=== PATIENT | female | born 1955 | race Caucasian/White ===

== ENCOUNTER 2021-01-11 14:32 | Outpatient (CLI) | payer MEDICARE, SELFPAY ==
[2021-01-11 14:46] LABS: Hematocrit 44.6 % (35.0-42.0); Hemoglobin 14.8 g/dL (11.7-13.8); Mean Corpuscular HGB Conc 33.2 g/dL (32.0-36.0); Mean Corpuscular Hemoglobin 31.3 pg (27.0-31.0); Mean Corpuscular Volume 94.3 fL (78.0-102.0); Mean Platelet Volume 9.8 fl (9.2-11.8); Platelet Count Result 206 K/mm3 (150-420); Red Blood Count 4.73 M/mm3 (4.20-5.40); Red Cell Distribution Width 13.5 % (11.6-14.4)
[2021-01-11 15:59] LABS: Alanine Aminotransferase 23 U/L (14-59); Alkaline Phosphatase 95 U/L (46-116); Anion Gap 12 mmol/L (8-16); Aspartate Amino Transferase 15 U/L (15-37); Bilirubin,Total 0.3 mg/dL (0.00-1.00); Blood Urea Nitrogen 10 mg/dL (7-18); Calcium 9.5 mg/dL (8.5-10.1); Carbon Dioxide 27 mmol/L (21-32); Chloride 103 mmol/L (98-108); Cholesterol 172 mg/dL (0-200); Estimated Glomerular Filt Rate > 60; Glucose 100 mg/dL (70-99); HDL Direct 45 mg/dL (40-60); LDL Cholesterol Calculated 98 mg/dL (<130); Osmolality Calculated 293 mOsm/kg (285-295); Potassium 4.2 mmol/L (3.5-5.1); Sodium 142 mmol/L (136-145); Total Protein 6.9 g/dL (6.4-8.2); Triglycerides 147 mg/dL (0-150)
[2021-01-11 16:02] LABS: Thyroid Stimulating Hormone Reflex 0.32 u/IU/mL (0.36-3.74)
[2021-01-11 16:03] LABS: Free T4 Free Thyroxine Reflex 1.07 ng/dL (0.76-1.46)
== END 2021-01-11 14:33 | disposition home or self-care (01) ==
PROVIDERS: PCP Family Medicine; Visit Provider Family Medicine
DX: M79.7 Fibromyalgia (principal); E78.00 Pure hypercholesterolemia, unspecified; E03.9 Hypothyroidism, unspecified; E11.9 Type 2 diabetes mellitus without complications
CPT/HCPCS: 36415; 80053; 80061; 84439; 84443; 85027

== ENCOUNTER 2022-02-08 15:46 | Outpatient (CLI) | payer MEDICARE, SELFPAY ==
[2022-02-08 15:56] LABS: Hematocrit 44.8 % (35.0-42.0); Hemoglobin 14.8 g/dL (11.7-13.8); Mean Corpuscular Hemoglobin 31.8 pg (27.0-31.0); Mean Corpuscular Volume 96.1 fL (78.0-102.0); Mean Platelet Volume 9.4 fl (9.2-11.8); Platelet Count Result 284 K/mm3 (150-420); Red Blood Count 4.66 M/mm3 (4.20-5.40); Red Cell Distribution Width 13.5 % (11.6-14.4)
[2022-02-08 16:15] LABS: Alanine Aminotransferase 43 U/L (14-59); Albumin Level 3.9 g/dL (3.4-5.0); Alkaline Phosphatase 85 U/L (46-116); Anion Gap 8 mmol/L (8-16); Aspartate Amino Transferase 20 U/L (15-37); Bilirubin,Total 0.3 mg/dL (0.00-1.00); Blood Urea Nitrogen 8 mg/dL (7-18); Calcium 9.4 mg/dL (8.5-10.1); Carbon Dioxide 29 mmol/L (21-32); Chloride 103 mmol/L (98-108); Cholesterol 164 mg/dL (0-200); Estimated Glomerular Filt Rate > 60; Glucose 143 mg/dL (70-99); HDL Direct 54 mg/dL (40-60); LDL Cholesterol Calculated 89 mg/dL (<130); Osmolality Calculated 290 mOsm/kg (285-295); Potassium 3.6 mmol/L (3.5-5.1); Sodium 140 mmol/L (136-145); Triglycerides 105 mg/dL (0-150)
[2022-02-08 16:25] LABS: Thyroid Stimulating Hormone Reflex 2.63 u/IU/mL (0.36-3.74)
== END 2022-02-08 15:47 | disposition home or self-care (01) ==
LOC: CHSLAB 15:48
PROVIDERS: PCP Family Medicine; Visit Provider Family Medicine
DX: M79.7 Fibromyalgia (principal); E78.00 Pure hypercholesterolemia, unspecified; E11.9 Type 2 diabetes mellitus without complications; E03.9 Hypothyroidism, unspecified
CPT/HCPCS: 36415; 80053; 80061; 84443; 85027

== ENCOUNTER 2022-09-01 09:10 | Outpatient (CLI) | payer MEDICARE, SELFPAY ==
--- NOTE | ~2022-09-01 | MR_ITS ---
MRI of the lumbar spine Clinical History: Back pain Technique: Axial T2-weighted images, and sagittal T1-weighted, T2-weighted, and and T2 fat-sat images were acquired. Findings: No acute fracture or subluxation identified in the lumbar spine. Vertebral bodies maintain normal height and alignment. There is diffusely heterogeneous marrow signal, but no focal, suspicious marrow signal abnormality is identified. At L1-L2, there is no disc bulge or herniation. There is minimal facet joint hypertrophy. No spinal c anal stenosis or neural foraminal narrowing. At L2-L3 and L3-L4, there is no disc bulge or herniation. No spinal canal stenosis or neural foramina l narrowing at these levels. There is facet arthropathy at these levels. At L4-L5, there is degenerative disc narrowing with minimal disc bulge and facet arthropathy. No spin al canal stenosis or neural foraminal narrowing. At L5-S1, there is no disc bulge or herniation. There is mild facet arthropathy. No spinal canal sten osis or neural foraminal narrowing. 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 Paravertebral soft tissues are otherwise unremarkable. Impression: Minimal degenerative spondylosis, as above. No spinal canal stenosis or neural foraminal narrowing. Nonspecific heterogeneous marrow signal without distinct fracture or focal, suspicious marrow signal abnormality. Reviewed, dictated and finalized at [facility]. ON HEADER Impression: Minimal degenerative spondylosis, as above. No spinal canal stenosis or neural foraminal narrowing. Nonspecific heterogeneous marrow signal without distinct fracture or focal, julián picious marrow signal abnormality.
== END 2022-09-01 09:11 | disposition home or self-care (01) ==
LOC: CHSIMG 09:12
PROVIDERS: PCP Family Medicine; Visit Provider Family Medicine
DX: M54.50 Low back pain, unspecified (principal); G89.29 Other chronic pain; M19.90 Unspecified osteoarthritis, unspecified site
CPT/HCPCS: 72148

== ENCOUNTER 2022-11-01 15:16 | Outpatient (CLI) | payer MEDICARE, SELFPAY ==
--- NOTE | ~2022-11-01 | XR_ITS ---
EXAMINATION: XR thoracic spine 3V DATE: 11/01/2022 15:45 INDICATION: Thoracic spine pain. TECHNIQUE: 3 views of thoracic spine were obtained. COMPARISON: None. FINDINGS: There is kyphosis of thoracic spine. Vertebral body heights are normal. There is mildly dec reased disc height at multiple levels in mid and upper thoracic spine. There are endplate osteophytes at most levels. There are surgical clips in the neck. There are multiple old healed left rib fractur es. IMPRESSION: 1. Mild thoracic spondylosis. 2. Thoracic kyphosis. Reviewed, dictated and finalized at location E.
[2022-11-08 11:42] LABS: Amphetamines NEGATIVE ng/mL (<500); Barbiturates NEGATIVE ng/mL (<300); Benzodiazepines NEGATIVE ng/mL (<100); Cocaine Metabolite NEGATIVE ng/mL (<100); Codeine NEGATIVE ng/mL (<50); Hydrocodone NEGATIVE ng/mL (<50); Hydromorphone NEGATIVE ng/mL (<50); Methadone Metabolite NEGATIVE ng/mL (<100); Morphine NEGATIVE ng/mL (<50); Norhydrocodone NEGATIVE ng/mL (<50); Noroxycodone 5200 ng/mL (<50); Opiates NEGATIVE CONFIRMED ng/mL (<100); Oxidant NEGATIVE mcg/mL (<200); pH 5.6 (4.5-9.0)
== END 2022-11-01 15:17 | disposition home or self-care (01) ==
LOC: CHSLAB 15:19
PROVIDERS: PCP Family Medicine; Visit Provider Nurse Practitioner Family
DX: M54.6 Pain in thoracic spine (principal); Z79.891 Long term (current) use of opiate analgesic; M43.04 Spondylolysis, thoracic region; M40.294 Other kyphosis, thoracic region
CPT/HCPCS: 72072; 80299; 80361; 80365; G0480

== ENCOUNTER 2023-06-12 16:25 | Outpatient (NON) | payer MEDICARE, SELFPAY | END 2023-06-12 16:26 | disposition home or self-care (01) | LOC: CHSLAB 16:27 | PROVIDERS: Visit Provider Family Medicine | DX: L57.0 Actinic keratosis (principal) | CPT/HCPCS: 88305 ==

== ENCOUNTER 2023-07-04 15:56 | Outpatient (CLI) | payer MEDICARE, SELFPAY ==
--- NOTE | ~2023-07-04 | XR_ITS ---
EXAMINATION:XR cervical spine min 6V DATE: 07/04/2023 16:41 INDICATION: Cervicalgia and right shoulder pain TECHNIQUE: AP, lateral swimmers and odontoid views and 3 lateral views in neutral, flexion and extens ion views of the cervical spine are provided. COMPARISON: Thoracic spine radiographs dated 10/22/2022 FINDINGS: Alignment is normal with normal motion with flexion and extension. Odontoid is intact. Normal atlant oaxial interval. Vertebral body heights are normal. Mild disc height loss at C3-C4, C5-C6 and C6-C7. There is moderate to severe uncovertebral osteoarthritis bilaterally at C6-C7. Small posterior disc o steophytes at C3-C4 and C6-C7 resulting in mild central canal stenosis. Multilevel moderate to severe facet osteoarthritis at C3-C4 through C5-C6 and at C7-T1. Surgical clips bilaterally at the lower ne ck suggesting prior thyroidectomy. Prevertebral soft tissues are otherwise normal. Moderate thoracic spondylosis. IMPRESSION: 1. Mild to moderate cervical spondylosis. Reviewed, dictated and finalized at location A. PPING CUTTER AND WINDER
--- NOTE | ~2023-07-04 | XR_ITS ---
EXAMINATION: XR shoulder RT min 2V DATE: 07/04/2023 16:41 INDICATION: Right shoulder pain TECHNIQUE: AP internally and externally rotated, AP oblique externally rotated and transscapular Y vi ews of the right shoulder were obtained. COMPARISON: None FINDINGS: Normal alignment. No fracture.Mild glenohumeral osteoarthritis and moderate acromioclavicular osteoa rthritis. Visualized portion of the lungs are clear. Surgical clips at the base of the neck suggestin g prior thyroidectomy. Soft tissues are otherwise unremarkable. IMPRESSION: Osteoarthritis, mild at the right glenohumeral and moderate at the right acromioclavicular joints. Reviewed, dictated and finalized at location A. ATION SUPERVISOR IMPRESSION: Osteoarthritis, mild at the right glenohumeral and moderate at the right acromi oclavicular joints.
== END 2023-07-04 15:57 | disposition home or self-care (01) ==
LOC: CHSLAB 15:59
PROVIDERS: PCP Nurse Practitioner Family; Visit Provider Nurse Practitioner Family
DX: G89.4 Chronic pain syndrome (principal); M79.7 Fibromyalgia; Z79.891 Long term (current) use of opiate analgesic; M43.02 Spondylolysis, cervical region; M19.011 Primary osteoarthritis, right shoulder
CPT/HCPCS: 36415; 72052; 73030; 80307

== ENCOUNTER 2024-05-05 13:52 | Outpatient (CLI) | payer MEDICARE, SELFPAY ==
--- NOTE | ~2024-05-05 | XR_ITS ---
XR knee RT 3V Ordering provider: Ankit Olvera DO History: . M25.561 - Pain in right knee,CHRONIC . Comparison: None. FINDINGS: BONES: No acute fracture or dislocation. Mild osteopenia of the bones. Possibility of lucencies in th e proximal tibia is noted. If clinically suspicious evaluation for multiple myeloma advised. JOINT SPACES: Normal. SOFT TISSUES: Atherosclerotic changes. IMPRESSION: No acute osseous abnormality right knee. Osteopenia of the bones with possible small lucencies. Reviewed, dictated and finalized at location A. ULAR PHONE REPAIRER
--- NOTE | ~2024-05-05 | XR_ITS ---
XR knee LT 3V Ordering provider: Ankit Olvera DO History: . M25.561 - Pain in right knee,CHRONIC . Comparison: None. FINDINGS: BONES: No acute fracture or dislocation. JOINT SPACES: Normal. SOFT TISSUES: Normal. IMPRESSION: No acute osseous abnormality left knee. Reviewed, dictated and finalized at location A. ANGE SPECIALIST
--- NOTE | ~2024-05-05 | XR_ITS ---
XR_CERV2-3V_CR Ordering provider: Ankit Olvera DO History: . M54.2 - Cervicalgia,CHRONIC . Comparison: None. FINDINGS: VERTEBRAL BODIES: Normal height and alignment. No visible fracture or subluxation. The dens is intact . Possibility of lucency in the superior articular process of C7 is not excluded. If clinically warra nted CT is advised. DISK SPACES: Narrowing of the disc C3-C4 and C6-C7. Multilevel facet joint disease. Multilevel uncovertebral joint osteoarthritic changes. PARASPINOUS SOFT TISSUES: Bilateral Carotid calcifications. No prevertebral soft tissue swelling. IMPRESSION: No acute osseous abnormality cervical spine. Possible lucency in the superior articular process of C7. Clinical correlation and if warranted CT is advised. Multilevel degenerative disc disease, facet joint disease and uncovertebral joint osteoarthritic alberts ges. Reviewed, dictated and finalized at location A. ARCH CHEF IMPRESSION: No acute osseous abnormality cervical spine. Possible lucency in the superior articular process of C7. Clinical correlation and if warranted CT is advised. Multilevel degenerative disc disease, facet joint disease and uncovertebral ronal nt osteoarthritic changes.
== END 2024-05-05 13:53 | disposition home or self-care (01) ==
LOC: CHSIMG 13:54
PROVIDERS: PCP Family Medicine; Visit Provider Family Medicine
DX: M25.561 Pain in right knee (principal); M25.562 Pain in left knee; G89.29 Other chronic pain; M50.30 Other cervical disc degeneration, unspecified cervical region; M85.89 Other specified disorders of bone density and structure, multiple sites
CPT/HCPCS: 72040; 73562

== ENCOUNTER 2024-05-08 09:23 | Outpatient (CLI) | payer MEDICARE, SELFPAY ==
--- NOTE | ~2024-05-08 | CT_ITS ---
EXAMINATION: CT cervical spine wo con DATE: 05/08/2024 09:37 INDICATION: Chronic neck pain. TECHNIQUE: Computed tomography (CT) of the cervical spine was performed without intravenous contrast. Automated exposure control and iterative reconstruction technique were employed. The dose-length pro duct was 77.11 mGy-cm. COMPARISON: Cervical spine radiographs 05/05/2024 FINDINGS: There is mild scarring at the lung apices. There is mild emphysema. There is 2 mm retrolist hesis of C3 on C4. Vertebral body heights are normal. There is severely decreased disc height at C3-C 4, mildly decreased disc height at C5-C6, and moderately decreased disc height at C6-C7. The followin g disc levels are specifically discussed: C2-C3: There is no uncovertebral joint osteoarthritis. There is severe right and moderate left facet joint osteoarthritis. There is no neural foraminal stenosis. There is no central canal stenosis. C3-C4: There is severe bilateral uncovertebral joint osteoarthritis. There is severe bilateral facet joint osteoarthritis. There is mild bilateral neural foraminal stenosis. There is mild central canal stenosis. C4-C5: There is no uncovertebral joint osteoarthritis. There is severe bilateral facet joint osteoart hritis. There is no neural foraminal stenosis. There is no central canal stenosis. C5-C6: There is mild left uncovertebral joint osteoarthritis. There is severe bilateral facet joint o steoarthritis. There is mild left neural foraminal stenosis. There is mild central canal stenosis. C6-C7: There is severe bilateral uncovertebral joint osteoarthritis. There is moderate right and mild left facet joint osteoarthritis. There is mild bilateral neural foraminal stenosis. There is mild ce ntral canal stenosis. C7-T1: There is no uncovertebral joint osteoarthritis. There is severe bilateral facet joint osteoart hritis. There is mild bilateral neural foraminal stenosis. There is no central canal stenosis. IMPRESSION: 1. No fracture. 2. Severe cervical spondylosis. Reviewed, dictated and finalized at location A. PRUNER
[2024-05-08 10:03] LABS: Add Urine Microscopic? YES; Appearance Urine Clear (Clear); Bilirubin Urine Negative (Negative); Blood Urine 1+ (Negative); Color Urine Yellow (Yellow); Glucose Urine UA Negative (Negative); Ketones Urine Negative (Negative); Leukocyte Esterase Ur Negative (Negative); Nitrate Urine Negative (Negative); Protein Urine Negative (Negative); Urobilinogen Urine 0.2 mg/dL (0.2-1.0)
[2024-05-08 10:12] LABS: Bacteria Urine Trace /hpf; Mucus Urine Few /lpf; RBC Urine 0-2 /hpf (0-2); Squamous Epithelial Cell Urine Few /hpf (Few); WBC Urine None seen /hpf (0-3)
== END 2024-05-08 09:24 | disposition home or self-care (01) ==
LOC: CHSIMG 09:26
PROVIDERS: PCP Family Medicine; Visit Provider Family Medicine
DX: R30.0 Dysuria (principal); R93.7 Abnormal findings on diagnostic imaging of other parts of musculoskeletal system; M43.02 Spondylolysis, cervical region
CPT/HCPCS: 72125; 81001